=== PATIENT | female | born 1965 | race Caucasian/White ===

== ENCOUNTER 2016-11-24 12:39 | Emergency (ER) | payer OTHER ==
[2016-11-24 13:57] LABS: HEMOGLOBIN 11.6 gm/dl (12.3-15.3); RED BLOOD COUNT 4.07 M/UL (4.00-5.10); WHITE BLOOD COUNT 4.1 K/UL (4.5-11.0)
[2016-11-24 14:18] LABS: BUN/CREATININE RATIO 25 (0-10)
== END 2016-11-24 18:20 | disposition home or self-care (01) ==
LOC: ER1 12:39
PROVIDERS: Emergency Medicine
DX: R41.82 Altered mental status, unspecified (principal); I10 Essential (primary) hypertension; Z90.710 Acquired absence of both cervix and uterus
CPT/HCPCS: 36415; 70450; 71020; 71260; 80053; 82550; 82553; 83690; 83874; 84484; 85025; 85379; 93005; 99285; J7050; Q9962

== ENCOUNTER 2020-08-26 02:05 | Emergency (ER) | payer BC, OTHER ==
[~2020-08-26 02:05] MED LIST: CATAPRES 0.1MG0.1 MG PO; DULOXETINE HCL60 MG PO; HYDROCHLOROTH12.5 MG PO; HYDROXYCHLOROQ200 MG PO; IBU800 MG PO; INDERAL PO; IPRATROPIUM BRO15 ML; KLONOPIN TAB 00.5 MG PO; LAMOTRIGINE100 MG PO; LASIX20 MG PO; LINZESS145 MCG PO; LISINOPRIL20 MG PO; LISINOPRIL40 MG PO; LOPRESSOR 50 MG50 MG PO; LOPRESSOR50 MG PO; NAPROSYN500 MG PO; NAPROXEN500 MG PO; OZEMPIC0.25 MG/0. SQ; PANTOPRAZOLE SO40 MG PO; PILOCARPINE HCL5 MG PO; SUMATRIPTAN SU100 MG PO; TIZANIDINE HCL4 MG PO; ZYLOPRIM 100 M100 MG PO
[2020-08-26 02:38] LABS: HEMOGLOBIN 12.9 gm/dl (12.3-15.3); RED BLOOD COUNT 4.55 M/UL (4.00-5.10); WHITE BLOOD COUNT 5.6 K/UL (4.5-11.0)
[2020-08-26 02:56] LABS: BUN/CREATININE RATIO 22 (0-10)
== END 2020-08-26 06:26 | disposition home or self-care (01) ==
LOC: ER1 02:05
PROVIDERS: Emergency Medicine
DX: I10 Essential (primary) hypertension (principal)
CPT/HCPCS: 36415; 70450; 71045; 80053; 81001; 82550; 82553; 84484; 85025; 85610; 85730; 93005; 99285

== ENCOUNTER → 2020-09-09 | Outpatient (CLI) | payer BC, OTHER | LOC: HEART 5 11:14 | DX: Z01.811 Encounter for preprocedural respiratory examination (principal); J45.909 Unspecified asthma, uncomplicated; R94.2 Abnormal results of pulmonary function studies; Z87.891 Personal history of nicotine dependence | CPT/HCPCS: 94010; 94729 ==

== ENCOUNTER → 2021-05-05 | Outpatient (CLI) | payer BC | LOC: LAB 15:44 | DX: R00.0 Tachycardia, unspecified (principal); R00.2 Palpitations; R60.0 Localized edema; I11.0 Hypertensive heart disease with heart failure; I50.9 Heart failure, unspecified; E78.49 Other hyperlipidemia; E07.9 Disorder of thyroid, unspecified; R06.02 Shortness of breath; I48.0 Paroxysmal atrial fibrillation; I25.5 Ischemic cardiomyopathy | CPT/HCPCS: 36415; 84436; 84443 ==

== ENCOUNTER → 2021-06-01 | Outpatient (CLI) | payer BC | LOC: EXRD 15:33 | DX: M54.50 Low back pain, unspecified (principal); M47.22 Other spondylosis with radiculopathy, cervical region; M47.816 Spondylosis without myelopathy or radiculopathy, lumbar region | CPT/HCPCS: 72040; 72100 ==